=== PATIENT | female | born 1955 | race Caucasian/White ===

== ENCOUNTER → 2016-10-28 | Outpatient (CLI) | payer OTHER ==
[2016-10-28 12:42] LABS: BILIRUBIN,URINE NEGATIVE (NEG); COLOR,URINE YELLOW; GLUCOSE, URINE (UA) NEGATIVE (NEG); NITRATE,URINE NEGATIVE (NEG); OCCULT BLOOD,URINE NEGATIVE (NEG); PH,URINE 5.5 (5.0-8.5); PROTEIN,URINE NEGATIVE (NEG); UROBILINOGEN,URINE 0.2 mg/dL (0.2)
[2016-10-28 13:02] LABS: BACTERIA,URINE RARE; CLARITY,URINE CLEAR (CLEAR); RBC,URINE 0-3 /hpf; SQUAMOUS EPITHELIAL CELL,UR FEW; URINE SAMPLE TYPE CLEAN CATCH URINE; WBC,URINE 0-3; YEAST,URINE FEW
== END ==
LOC: MOB LAB 10:31
PROVIDERS: ATTEND Nurse Practitioner Family
DX: R30.0 Dysuria (principal)
CPT/HCPCS: 81001